=== PATIENT | male | born 1985 | race Caucasian/White ===

== ENCOUNTER 2018-01-03 20:18 | Emergency (ER) | payer OTHER ==
[2018-01-03] MEDS ORDERED: Dexamethasone 4 mg/ml Vial ONE (20:51)
[2018-01-03 21:22] LABS: #Basophils 0.1 thou/uL (0.0-0.2); #Eosinphils 0.3 thou/uL (0.0-0.7); #Lymphocytes 2.1 thou/uL (1.20-3.40); #Monocytes 0.9 thou/uL (0.11-0.59); #Neutrophils 5.5 thou/uL (1.40-6.50); %Basophils 1.3 % (0.0-1.0); %Eosinophils 3.4 % (0.0-10.0); %Lymphocytes 23.9 % (21.0-51.0); %Monocytes 9.5 % (0.0-10.0); %Neutrophils 61.8 % (42.0-75.0); Hemoglobin 13.7 g/dL (14.0-18.0); Mean Corpuscular HGB CONC 34.4 g/dL (32.0-36.0); Mean Corpuscular Hemoglobin 32.9 pg (27.0-31.0); Mean Corpuscular Volume 95.6 fL (78.0-98.0); Mean Platelet Volume 5.7 fL (7.4-10.4); Platelet Count 335 thou/uL (130-400); RBC Distribution Width 11.1 % (11.5-14.5); Red Blood Cell (RBC) Count 4.18 mill/uL (4.70-6.10); White Blood Cell (WBC) Count 8.9 thou/uL (4.8-10.8)
[2018-01-03 21:40] LABS: ALT (SGPT) 31 U/L (8-55); AST (SGOT) 38 U/L (5-34); Albumin 4.5 g/dL (3.5-5.0); Alkaline Phosphatase 53 U/L (40-150); Anion Gap 14 mmol/L (10-20); BUN (Urea Nitrogen) 7 mg/dL (8.9-20.6); Bilirubin, Total 0.5 mg/dL (0.2-1.2); Calc. Creatinine Clearance 0 mL/min (70-130); Calcium 9.4 mg/dL (7.8-10.44); Carbon Dioxide 23 mmol/L (22-29); Chloride 93 mmol/L (98-107); Estimated GFR-MDRD Greater than 90; Globulin 2.4 g/dL (2.4-3.5); Glucose 110 mg/dL (70-105); Lipase 39 U/L (8-78); Potassium 3.4 mmol/L (3.5-5.1); Protein, Total 6.9 g/dL (6.0-8.3); Sodium 127 mmol/L (136-145)
--- NOTE | 2018-01-03 21:42 | RAD ---
PA AND LATERAL CHEST: History: Chest pain. FINDINGS: The cardiomediastinum is normal. The lungs are expanded and clear. The bony thorax is normal. IMPRESSION: Normal exam. POS: [facility]
[2018-01-03 22:06] LABS: Acetaminophen Less than 6.0 mcg/mL (10.0-30.0); Alcohol 179 mg/dL (Less than 10); Salicylate Less than 8.0 mg/dL (15.0-30.0)
--- NOTE | 2018-01-03 22:56 | ULT ---
RIGHT UPPER QUADRANT ULTRASOUND: History: Right upper quadrant pain. FINDINGS: The gallbladder appears somewhat contracted with the wall measuring 3 mm in thickness. No definite sh adowing gallstones are seen. The common duct measures 3 mm. A sonographic positive Leary's sign was reported by the health insurance specialist. The liver, pancreas, and right kidney appear normal. No free fluid is seen. IMPRESSION: Slightly contracted gallbladder without definite evidence of cholelithiasis. A positive Leary's sign was reported by the health insurance specialist. If there is concern for acute cholecystitis, further evaluation wit h HIDA scan should be performed. POS: [facility]
== END 2018-01-03 23:21 | disposition home or self-care (01) ==
LOC: ERS 20:18
DX: K82.0 Obstruction of gallbladder (principal); R07.89 Other chest pain; E87.6 Hypokalemia; G89.29 Other chronic pain; M54.9 Dorsalgia, unspecified
CPT/HCPCS: 36415; 71046; 76705; 80053; 80307; 83690; 85025; 96360; J1100